=== PATIENT | male | born 2000 | race Caucasian/White ===

== ENCOUNTER 2018-07-10 00:26 | Emergency (ER) | payer MEDICAID, OTHER ==
[~2018-07-10] VITALS: Ht 177.8 cm; Wt 93.4 kg
[2018-07-10 00:39] VITALS: BP 132/77
--- NOTE | 2018-07-10 00:44 | NUR ---
PT AMBULATED TO BED 2, REPORT TO LUIS MANUEL ODONNELL
--- NOTE | 2018-07-10 00:55 | NUR ---
PT BIB SELF FOR FINGER PAIN X1 DAY. PT REPORTS FIRST NOTICING EDEMA AND ERYTHEMA ON LEFT 3RD FINGER. PT REPORTS THROBING PAIN AT 8/10. VISIBLE EDEMA, ERYTHEMA, AND MINIMAL BLOODY DISCHARCE ON TIP OF L 3RD FINGER. CMS+. VSS. ER TO SEE PT.
--- NOTE | 2018-07-10 02:10 | NUR ---
Dr. Rollins evaluating patient at bedside.
[2018-07-10 02:23] VITALS: BP 133/95
--- NOTE | 2018-07-10 02:23 | NUR ---
Patient discharged with v/s stable. Written and verbal after care instructions given and explained. Patient alert, oriented and verbalized understanding of instructions. Ambulatory with steady gait. All questions addressed prior to discharge. ID band removed. Patient advised to follow up with PMD. Rx of KEFLEX, BACTRIM, AND MOTRIN given. Patient educated on indication of medication including possible reaction and side effects. Opportunity to ask questions provided and answered.
== END 2018-07-10 02:23 | disposition home or self-care (01) ==
LOC: MED 00:26
DX: L03.012 Cellulitis of left finger (principal); F17.200 Nicotine dependence, unspecified, uncomplicated
CPT/HCPCS: 99283